=== PATIENT | female | born 1950 | race African-American/Black ===

== ENCOUNTER → 2017-10-25 | Outpatient (CLI) | payer BC ==
[2017-10-26 00:02] LABS: CLARITY URINE CLEAR (CLEAR); COLOR URINE DARK YELLOW (YELLOW); KETONES URINE TRACE (NEGATIVE); LEUKOCYTE ESTERASE URINE 3+ (NEGATIVE); NITRITE URINE NEGATIVE (NEGATIVE); OCCULT BLOOD URINE NEGATIVE (NEGATIVE); PROTEIN URINE NEGATIVE (NEGATIVE); SPECIFIC GRAVITY URINE 1.024 (1.005-1.030)
[2017-10-26 00:04] LABS: BASOPHILS % 0.8 % (0.0-2.0); EOSINOPHILS % 2.1 % (0.0-5.0); HEMATOCRIT. 40.4 % (36.0-48.0); HEMOGLOBIN. 13.3 g/dL (12.0-16.0); MEAN CORPUSCULAR HEMOGLOBIN 31.7 pg (28.0-32.0); MEAN CORPUSCULAR VOLUME 96.6 fL (81.0-99.0); MEAN PLATELET VOLUME 9.7 fl (7.4-10.4); MONOCYTES % 9.3 % (2.0-8.0); NEUTROPHILS % 56.8 % (40.0-76.0); PLATELET 220 x1000/uL (130-400); RED BLOOD CELL COUNT 4.18 mill/uL (4.2-5.4); RED CELL DISTRIBUTION WIDTH 15.2 % (11.6-14.6)
[2017-10-26 00:06] LABS: CHLORIDE 112 mEq/L (98-107)
[2017-10-26 00:28] LABS: PROTHROMBIN TIME 10.6 sec (9.4-11.6)
== END | disposition home or self-care (01) ==
LOC: LAB 18:42
DX: I10 Essential (primary) hypertension (principal); G47.26 Circadian rhythm sleep disorder, shift work type; D50.8 Other iron deficiency anemias; R79.89 Other specified abnormal findings of blood chemistry; Z79.01 Long term (current) use of anticoagulants
CPT/HCPCS: 36415; 80048; 81003; 85025; 85610; 87086; 87536

== ENCOUNTER → 2017-11-30 | Outpatient (CLI) | payer BC | END | disposition home or self-care (01) | LOC: RAD 18:18 | DX: Z01.818 Encounter for other preprocedural examination (principal); M13.862 Other specified arthritis, left knee; M25.862 Other specified joint disorders, left knee | CPT/HCPCS: 71045; 73562 ==

== ENCOUNTER → 2017-12-07 | Outpatient (CLI) | payer BC ==
[~2017-12-07] MED LIST: AMLO10TA80 PO; DOCU-138 PO; FERR324T4 PO; GING550C5 PO; HYDR-4009 PO; TURM538C PO
[2017-12-08 05:32] LABS: BASOPHILS % 1.1 % (0.0-2.0); EOSINOPHILS % 2.9 % (0.0-5.0); HEMATOCRIT. 39.6 % (36.0-48.0); LYMPHOCYTES % 28.9 % (20.0-50.0); MEAN CORPUSCULAR HEMOGLOBIN 31.6 pg (28.0-32.0); MEAN CORPUSCULAR VOLUME 96.5 fL (81.0-99.0); MEAN PLATELET VOLUME 9.6 fl (7.4-10.4); MONOCYTES % 11.8 % (2.0-8.0); NEUTROPHILS % 55.3 % (40.0-76.0); PLATELET 226 x1000/uL (130-400)
[2017-12-08 05:40] LABS: CHLORIDE 111 mEq/L (98-107)
[2017-12-08 05:53] LABS: CLARITY URINE CLEAR (CLEAR); COLOR URINE YELLOW (YELLOW); KETONES URINE NEGATIVE (NEGATIVE); LEUKOCYTE ESTERASE URINE NEGATIVE (NEGATIVE); NITRITE URINE NEGATIVE (NEGATIVE); OCCULT BLOOD URINE NEGATIVE (NEGATIVE); PH URINE 6.5 (4.5-8.0); PROTEIN URINE NEGATIVE (NEGATIVE); SPECIFIC GRAVITY URINE 1.026 (1.005-1.030); UROBILINOGEN URINE 0.2 E.U./dL (0.2-1.0)
[2017-12-08 05:59] LABS: PROTHROMBIN TIME 10.3 sec (9.4-11.6)
== END | disposition home or self-care (01) ==
LOC: LAB 18:35
DX: I10 Essential (primary) hypertension (principal); R06.02 Shortness of breath
CPT/HCPCS: 36415; 80048; 81003; 85025; 85610

== ENCOUNTER → 2017-12-19 | Outpatient (CLI) | payer BC | END | disposition home or self-care (01) | LOC: RAD 07:31 | PROVIDERS: ATTEND Internal Medicine Clinical Cardiac Electrophysiology | DX: I10 Essential (primary) hypertension (principal); R06.02 Shortness of breath; R07.89 Other chest pain | CPT/HCPCS: 78451; A9500; C1893 ==

== ENCOUNTER 2018-01-23 08:37 | Inpatient (IN) | payer BC, MEDICARE ==
[~2018-01-23] VITALS: Ht 170.2 cm; Wt 102.1 kg
[2018-01-23] MEDS ORDERED: LACTATED RINGERS 1,000 ML IV SCH (10:30)
[2018-01-23] MEDS ORDERED: LIDOCAINE HCL/PF 1% 10 MG/ML 5ML VIAL ONE (10:51)
[2018-01-23 10:52] LABS: HEMATOCRIT. 40.9 % (36.0-48.0); HEMOGLOBIN. 13.5 g/dL (12.0-16.0); LYMPHOCYTES % 20.6 % (20.0-50.0); MEAN CORPUSCULAR HEMOGLOBIN 31.6 pg (28.0-32.0); MEAN CORPUSCULAR VOLUME 95.5 fL (81.0-99.0); MEAN PLATELET VOLUME 9.7 fl (7.4-10.4); MONOCYTES % 10.6 % (2.0-8.0); NEUTROPHILS % 64.8 % (40.0-76.0); PLATELET 190 x1000/uL (130-400); RED BLOOD CELL COUNT 4.28 mill/uL (4.2-5.4)
[2018-01-23 10:54] LABS: CLARITY URINE CLEAR (CLEAR); COLOR URINE YELLOW (YELLOW); KETONES URINE TRACE (NEGATIVE); LEUKOCYTE ESTERASE URINE NEGATIVE (NEGATIVE); NITRITE URINE NEGATIVE (NEGATIVE); OCCULT BLOOD URINE NEGATIVE (NEGATIVE); PH URINE 6.5 (4.5-8.0); PROTEIN URINE NEGATIVE (NEGATIVE); SPECIFIC GRAVITY URINE 1.018 (1.005-1.030); UROBILINOGEN URINE 0.2 E.U./dL (0.2-1.0)
[2018-01-23 11:00] LABS: CHLORIDE 110 mEq/L (98-107)
[2018-01-23 11:01] LABS: PROTHROMBIN TIME 10.1 sec (9.4-11.6)
[2018-01-23] MEDS ORDERED: HYDR-4009 PO (11:56)
[2018-01-23] MEDS ORDERED: GING550C5 PO (11:56)
[2018-01-23] MEDS ORDERED: FERR324T4 PO (11:56)
[2018-01-23] MEDS ORDERED: AMLO10TA80 PO (11:56)
[2018-01-23] MEDS ORDERED: TURM538C PO (11:56)
[2018-01-23] MEDS ORDERED: METHYLENE BLUE 50 MG/10 ML AMP IV ONE (12:43)
[2018-01-23] MEDS ORDERED: EPINEPHRINE 1:1000 1 MG/ML AMP ONE (12:44)
[2018-01-23] MEDS ORDERED: BUPIVACAINE HCL/EPINEPHRINE/PF 0.5%/0.0005 10ML ONE (12:44)
[2018-01-23] MEDS ORDERED: NORMAL SALINE 0.9% 10 ML SYR ONE (12:44)
[2018-01-23] MEDS ORDERED: BACITRACIN 50,000 UNITS/VIAL ONE (12:44)
[2018-01-23] MEDS ORDERED: GENTAMICIN SULF 40MG/ML 2ML VIAL ONE (12:44)
[2018-01-23] MEDS ORDERED: TRANEXAMIC ACID 1,000 MG in SODIUM CHLORIDE 0.9% 100 ML IV NR (13:00)
[2018-01-23] MEDS ORDERED: MIDAZOLAM HCL 2 MG/2 ML VIAL ONE (13:24)
[2018-01-23] MEDS ORDERED: BUPIVACAINE HCL 0.5% (5MG/ML) 50ML ONE (13:25)
[2018-01-23] MEDS ORDERED: FENTANYL CITRATE/PF 50MCG/ML 2ML VIAL ONE ×2 (13:25→16:22)
[2018-01-23] MEDS ORDERED: PROPOFOL 200MG/20ML VIAL IV ONE (13:25)
[2018-01-23] MEDS ORDERED: SUCCINYLCHOLINE CHLORIDE 200MG/10ML VIAL IV ONE (13:28)
[2018-01-23] MEDS ORDERED: BUPIVACAINE HCL/EPINEPHRINE 0.5%/0.0005 30ML ONE (13:32)
[2018-01-23] MEDS ORDERED: MORPHINE SULFATE/PF 1MG/ML 10ML AMP ONE (13:48)
[2018-01-23] MEDS ORDERED: PHENYLEPHRINE HCL 10 MG/ML 1ML (IV VIAL) IV ONE (13:54)
[2018-01-23] MEDS ORDERED: ROCURONIUM BROMIDE 10MG/ML VIAL 5ML IV ONE (14:07)
[2018-01-23] MEDS ORDERED: FENTANYL CITRATE/PF 50MCG/ML 5ML VIAL ONE (14:08)
[2018-01-23] MEDS ORDERED: CEFAZOLIN SODIUM 1000MG/VIAL ONE (14:19)
[2018-01-23] MEDS ORDERED: DEXAMETHASONE 4MG/ML 1ML VIAL ONE (15:29)
[2018-01-23] MEDS ORDERED: NEOSTIGMINE METHYLSULFATE 1MG/ML 10 ML VIAL ONE (16:42)
[2018-01-23] MEDS ORDERED: GLYCOPYRROLATE 0.2 MG/ML 2ML VIAL ONE (16:42)
[2018-01-23] MEDS ORDERED: ONDANSETRON HCL 4MG/2ML VIAL ONE (16:43)
[2018-01-23] MEDS ORDERED: KETOROLAC 30MG/ML VIAL ONE (16:47)
[2018-01-23] MEDS ORDERED: HYDROMORPHONE HCL/PF 2MG/ML CPJ IV PRN (17:15)
[2018-01-23] MEDS ORDERED: MEPERIDINE HCL/PF 25MG/ML CPJ IV PRN (17:15)
[2018-01-23] MEDS ORDERED: ONDANSETRON HCL 4MG/2ML VIAL IV PRN ×2 (17:15→17:45)
[2018-01-23] MEDS ORDERED: ACETAMINOPHEN 325MG TABLET PO PRN (17:45)
[2018-01-23] MEDS ORDERED: HYDROMORPHONE PCA 10MG/50ML IV PRN (18:00)
[2018-01-23] MEDS ORDERED: NALOXONE INJ IV PRN (18:00)
[2018-01-23] MEDS ORDERED: DIPHENHYDRAMINE INJ IV PRN (18:00)
[2018-01-23] MEDS ORDERED: ONDANSETRON INJ IV PRN (18:00)
[2018-01-23 20:00] VITALS: BP 143/57
[2018-01-23] MEDS ORDERED: ZOLPIDEM TARTRATE 5MG TABLET PO PRN (21:00)
[2018-01-23 21:08] VITALS: BP 143/57
[2018-01-23] MEDS: HYDROCODONE/ACETAMINOPHEN 10/325MG TABLET PO PRN (23:22)
[2018-01-23] MEDS: CEFAZOLIN 2,000 MG in DEXT 5% WATER 100 ML IV SCH (23:22)
[2018-01-24] VITALS: BP 150/78
[2018-01-24 04:00] VITALS: BP 104/66
[2018-01-24] MEDS: CEFAZOLIN 2,000 MG in DEXT 5% WATER 100 ML IV SCH (05:26)
[2018-01-24 08:00] VITALS: BP 149/80
[2018-01-24] MEDS: ENOXAPARIN 30MG/0.3ML SYR SUBCUT SCH ×2 (08:35→21:09)
[2018-01-24] MEDS: DOCUSATE SODIUM 100MG CAPSULE PO SCH ×2 (08:37→17:43)
[2018-01-24] MEDS: FERROUS SULFATE 325MG TABLET PO SCH ×3 (08:37→17:43)
[2018-01-24] MEDS: HYDROCODONE/ACETAMINOPHEN 10/325MG TABLET PO PRN ×4 (08:38→21:28)
[2018-01-24] MEDS: AMLODIPINE 10MG TABLET PO SCH (09:16)
[2018-01-24 11:13] LABS: BASOPHILS % 0.2 % (0.0-2.0); EOSINOPHILS % 0.3 % (0.0-5.0); HEMATOCRIT. 31.4 % (36.0-48.0); HEMOGLOBIN. 10.4 g/dL (12.0-16.0); LYMPHOCYTES % 12.1 % (20.0-50.0); MEAN CORPUSCULAR VOLUME 96.6 fL (81.0-99.0); MEAN PLATELET VOLUME 10.4 fl (7.4-10.4); MONOCYTES % 11.2 % (2.0-8.0); NEUTROPHILS % 76.2 % (40.0-76.0); PLATELET 140 x1000/uL (130-400); RED BLOOD CELL COUNT 3.25 mill/uL (4.2-5.4); RED CELL DISTRIBUTION WIDTH 15.4 % (11.6-14.6)
[2018-01-24 11:24] LABS: CHLORIDE 108 mEq/L (98-107)
[2018-01-24 12:00] VITALS: BP 112/64
[2018-01-24 16:00] VITALS: BP 133/59
[2018-01-24 20:00] VITALS: BP 135/58
[2018-01-24] MEDS ORDERED: FAMOTIDINE 20MG TABLET PO SCH (21:00)
[2018-01-25] VITALS (8 sets, daily range): BP systolic 105–138; BP diastolic 64–77
[2018-01-25] MEDS: HYDROCODONE/ACETAMINOPHEN 10/325MG TABLET PO PRN ×6 (02:05→21:38)
[2018-01-25] MEDS: FERROUS SULFATE 325MG TABLET PO SCH ×4 (07:50→17:49)
[2018-01-25] MEDS: ENOXAPARIN 30MG/0.3ML SYR SUBCUT SCH (08:38)
[2018-01-25] MEDS: DOCUSATE SODIUM 100MG CAPSULE PO SCH ×2 (08:38→17:49)
[2018-01-25] MEDS: MAGNESIUM HYDROXIDE 400MG/5ML 30ML UDC PO PRN ×2 (08:38→12:55)
[2018-01-25] MEDS: AMLODIPINE 10MG TABLET PO SCH (08:39)
[2018-01-25] MEDS ORDERED: DOCU-138 PO ×2 (20:55→20:56)
== END 2018-01-25 22:05 | disposition home health service (06) | DRG 470 ==
LOC: ORIP 08:37 → 6EST 19:28
PROVIDERS: ADMIT Orthopaedic Surgery; ATTEND Orthopaedic Surgery
PROC: 0SRD0J9 Replacement of Left Knee Joint with Synthetic Substitute, Cemented, Open Approach (ICD-10-PCS; principal; 2018-01-23 14:00)
DX: M17.12 Unilateral primary osteoarthritis, left knee (principal); I10 Essential (primary) hypertension; E66.9 Obesity, unspecified; D64.9 Anemia, unspecified; M10.9 Gout, unspecified; G89.29 Other chronic pain; Z96.651 Presence of right artificial knee joint; M24.562 Contracture, left knee; M65.9 Synovitis and tenosynovitis, unspecified; W27.0XXA Contact with workbench tool, initial encounter; Z87.891 Personal history of nicotine dependence; Z98.84 Bariatric surgery status; Z68.35 Body mass index [BMI] 35.0-35.9, adult
CPT/HCPCS: 36415; 73560; 80048; 81003; 85025; 85610; 85730; 86850; 86900; 88305; 88309; 88311; 93005; 97110; 97116; 97162; 97166; 97530; A4216; C1713; C1776; J0171; J0330; J0690; J1100; J1170; J1200; J1580; J1650; J1885; J2175; J2250; J2274; J2370; J2405; J2704; J2710; J3010; J3490; J7030; J7050; J7060; J7120; L1830; Q9968

== ENCOUNTER 2018-09-07 06:01 | Emergency (ER) | payer BC, MEDICARE ==
[~2018-09-07] VITALS: Ht 167.6 cm; Wt 96.0 kg
[~2018-09-07 06:01] MED LIST changes: -GING550C5 PO; -TURM538C PO
[2018-09-07 06:43] VITALS: BP 158/103
[2018-09-07] MEDS ORDERED: PREDNISONE 20MG TABLET PO ONE (07:00)
== END 2018-09-07 07:10 | disposition home or self-care (01) ==
LOC: ER 06:01
DX: T78.49XA Other allergy, initial encounter (principal); D64.9 Anemia, unspecified; I10 Essential (primary) hypertension; X58.XXXA Exposure to other specified factors, initial encounter; Z96.659 Presence of unspecified artificial knee joint; Z98.84 Bariatric surgery status; Z98.890 Other specified postprocedural states; Z79.899 Other long term (current) drug therapy; Z91.013 Allergy to seafood
CPT/HCPCS: 99283; J7512

== ENCOUNTER → 2019-09-27 | Outpatient (CLI) | payer BC ==
[2019-09-27 09:52] LABS: BASOPHILS % 0.8 % (0.0-2.0); EOSINOPHILS % 2.6 % (0.0-5.0); HEMATOCRIT. 42.7 % (36.0-48.0); HEMOGLOBIN. 14.5 g/dL (12.0-16.0); LYMPHOCYTES % 20.1 % (20.0-50.0); MEAN CORPUSCULAR HEMOGLOBIN 33.3 pg (28.0-32.0); MEAN PLATELET VOLUME 10.3 fl (7.4-10.4); MONOCYTES % 11.5 % (2.0-8.0); PLATELET 137 x1000/uL (130-400); RED BLOOD CELL COUNT 4.35 mill/uL (4.2-5.4); RED CELL DISTRIBUTION WIDTH 15.2 % (11.6-14.6)
[2019-09-27 10:33] LABS: CORTISOL 13.6 ucg/dL
[2019-09-28 09:08] LABS: CA 27.29 16.7 U/mL (0.0-38.6); CANCER ANTIGEN 125 11.2 U/mL (0.0-38.1)
== END | disposition home or self-care (01) ==
LOC: LAB 08:50
DX: N28.1 Cyst of kidney, acquired (principal)
CPT/HCPCS: 36415; 80061; 82024; 82088; 82378; 82533; 82626; 82728; 83036; 83540; 83550; 85025; 86300; 86301; 86304

== ENCOUNTER 2020-12-17 01:34 | Emergency (ER) | payer BC ==
[~2020-12-17] VITALS: Ht 170.2 cm; Wt 100.0 kg
[2020-12-17] MEDS ORDERED: ASPIRIN 81MG TABLET PO ONE (02:30)
[2020-12-17] MEDS ORDERED: LABETALOL 5MG/ML SYR 20 MG/4 ML SYRINGE IV ONE (02:30)
[2020-12-17 02:53] LABS: BASOPHILS % 0.9 % (0.0-2.0); EOSINOPHILS % 2.3 % (0.0-5.0); HEMATOCRIT. 45.2 % (36.0-48.0); HEMOGLOBIN. 15.1 g/dL (12.0-16.0); LYMPHOCYTES % 25.7 % (20.0-50.0); MEAN CORPUSCULAR HEMOGLOBIN 32.7 pg (28.0-32.0); MEAN CORPUSCULAR VOLUME 97.8 fL (81.0-99.0); MEAN PLATELET VOLUME 10.3 fl (7.4-10.4); MONOCYTES % 11.5 % (2.0-8.0); NEUTROPHILS % 59.6 % (40.0-76.0); PLATELET 165 x1000/uL (130-400); RED BLOOD CELL COUNT 4.62 mill/uL (4.2-5.4); RED CELL DISTRIBUTION WIDTH 15.1 % (11.6-14.6)
[2020-12-17 02:57] LABS: CHLORIDE 109 mEq/L (98-107)
[2020-12-17] MEDS ORDERED: AMLO10TA80 MT (05:03)
[2020-12-17 05:48] VITALS: BP 174/98
== END 2020-12-17 05:49 | disposition home or self-care (01) ==
LOC: ER 01:34
DX: I10 Essential (primary) hypertension (principal); R42 Dizziness and giddiness; Z98.84 Bariatric surgery status; Z96.659 Presence of unspecified artificial knee joint; Z91.09 Other allergy status, other than to drugs and biological substances
CPT/HCPCS: 36415; 70450; 71045; 80053; 83880; 84484; 85025; 93005; 96374; 99285; J3490; Z7610

== ENCOUNTER → 2022-02-10 | Outpatient (CLI) | payer BC, MEDICARE ==
[~2022-02-10] MED LIST changes: +AMLO10TA80 MT
== END | disposition home or self-care (01) ==
LOC: US 08:23
DX: S09.90XA Unspecified injury of head, initial encounter (principal); G31.9 Degenerative disease of nervous system, unspecified; I67.82 Cerebral ischemia; R90.82 White matter disease, unspecified; N20.0 Calculus of kidney; R10.9 Unspecified abdominal pain; X58.XXXA Exposure to other specified factors, initial encounter; Y93.89 Activity, other specified; Y92.89 Other specified places as the place of occurrence of the external cause; Y99.8 Other external cause status
CPT/HCPCS: 76770

== ENCOUNTER → 2022-03-10 | Outpatient (CLI) | payer BC, MEDICARE ==
[2022-03-10 11:41] LABS: CHLORIDE 108 mEq/L (98-107)
[2022-03-10 11:59] LABS: HDL CHOLESTEROL 82 mg/dL (40-59); LDL CHOLESTEROL 96 mg/dL (5-100); T4 FREE 0.83 ng/dL (0.76-1.46); TOTAL IRON BINDING CAPACITY 359 ug/dL (250-450)
[2022-03-11 13:06] LABS: ANTI-DNA DOUBLE STRANDED QUANT < 1 IU/mL (0-9); ANTI-NUCLEAR ANTIBODIES DIRECT Negative (Negative); ANTI-SCLERODERMA-70 AB <0.2 AI (0.0-0.9); RNP ANTIBODY 0.2 AI (0.0-0.9); SJOGRENS ANTI SS-A < 0.2 AI (0.0-0.9); SJOGRENS ANTI SS-B < 0.2 AI (0.0-0.9)
== END | disposition home or self-care (01) ==
LOC: LAB 10:42
DX: S09.90XA Unspecified injury of head, initial encounter (principal); G31.01 Pick's disease; R10.9 Unspecified abdominal pain; R54 Age-related physical debility; Z72.3 Lack of physical exercise; X58.XXXA Exposure to other specified factors, initial encounter; Y93.89 Activity, other specified; Y92.89 Other specified places as the place of occurrence of the external cause; Y99.8 Other external cause status
CPT/HCPCS: 36415; 80053; 80061; 83540; 83550; 84439; 84443; 84481; 85379; 86038; 86225; 86235; 86430

== ENCOUNTER → 2022-07-27 | Outpatient (CLI) | payer BC, MEDICARE | END | disposition home or self-care (01) | LOC: EDSTATUS 09:44 → CARD 09:45 | PROVIDERS: ATTEND Psychiatry & Neurology Neurology | DX: R26.89 Other abnormalities of gait and mobility (principal); R29.6 Repeated falls ==

== ENCOUNTER → 2022-09-26 | Outpatient (CLI) | payer BC, MEDICARE ==
[2022-09-26 12:04] LABS: PARTIAL THROMBOPLASTIN TIME 27.1 sec (23.4-31.0); PROTHROMBIN TIME 10.9 sec (9.6-11.0)
[2022-09-26 12:06] LABS: BASOPHILS % 0.7 % (0.0-2.0); EOSINOPHILS % 3.1 % (0.0-5.0); HEMATOCRIT. 43.6 % (36.0-48.0); HEMOGLOBIN. 14.4 g/dL (12.0-16.0); LYMPHOCYTES % 32.7 % (20.0-50.0); MEAN CORPUSCULAR HEMOGLOBIN 31.5 pg (28.0-32.0); MEAN CORPUSCULAR VOLUME 95.7 fL (81.0-99.0); MONOCYTES % 10.5 % (2.0-8.0); PLATELET 186 x1000/uL (130-400); RED BLOOD CELL COUNT 4.56 mill/uL (4.2-5.4); RED CELL DISTRIBUTION WIDTH 16.5 % (11.6-14.6)
== END | disposition home or self-care (01) ==
LOC: LAB 11:16
DX: Z01.818 Encounter for other preprocedural examination (principal); H53.2 Diplopia; H49.882 Other paralytic strabismus, left eye
CPT/HCPCS: 36415; 71046; 80048; 85025; 93005

== ENCOUNTER → 2023-03-14 | Day surgery (SDC) | payer BC ==
[~2023-03-14] VITALS: Ht 170.2 cm; Wt 88.5 kg
[~2023-03-14] MED LIST changes: +ACETAMINOPHEN 325MG TABLET PO PRN; +CEFAZOLIN SODIUM 1000MG/VIAL ONE; +CHLO25TA2 PO; +DEXAMETHASONE 4MG/ML 1ML VIAL ONE; +FENTANYL CITRATE/PF 50MCG/ML 2ML VIAL ONE; +FOLI-43 PO; +GLYCOPYRROLATE 0.2 MG/ML 2ML VIAL ONE; +LACTATED RINGERS 1,000 ML IV SCH; +MECL-264 PO; +ONDANSETRON HCL 4MG/2ML INJ ONE; +POTA-202 PO; +PROPOFOL 200MG/20ML VIAL IV ONE; +UBID100C12 PO
[2023-03-14 08:44] LABS: POTASSIUM 3.7 mEq/L (3.5-5.1)
[2023-03-14 14:37] VITALS: TEMP 97.8
== END | disposition home or self-care (01) ==
LOC: OR 08:07
PROVIDERS: ATTEND Ophthalmology
DX: H50.112 Monocular exotropia, left eye (principal); I10 Essential (primary) hypertension; D64.9 Anemia, unspecified; Z79.899 Other long term (current) drug therapy; Z98.890 Other specified postprocedural states
CPT/HCPCS: 67312; 84132; 36415; J3010; J0690; J1100; J3490; J2405; J2704

== ENCOUNTER 2024-06-02 07:50 | Emergency (ER) | payer BC ==
[~2024-06-02] VITALS: Ht 167.6 cm; Wt 90.2 kg
[~2024-06-02 07:50] MED LIST changes: -ACETAMINOPHEN 325MG TABLET PO PRN; -CEFAZOLIN SODIUM 1000MG/VIAL ONE; -DEXAMETHASONE 4MG/ML 1ML VIAL ONE; -DOCU-138 PO; -FENTANYL CITRATE/PF 50MCG/ML 2ML VIAL ONE; -FERR324T4 PO; -GLYCOPYRROLATE 0.2 MG/ML 2ML VIAL ONE; -HYDR-4009 PO; -LACTATED RINGERS 1,000 ML IV SCH; -ONDANSETRON HCL 4MG/2ML INJ ONE; -PROPOFOL 200MG/20ML VIAL IV ONE
[2024-06-02 08:13] VITALS: O2SAT 100
[2024-06-02] MEDS ORDERED: TRAM-534 MT (10:55)
[2024-06-02 11:10] VITALS: BP 130/84; PULSE 97; RESP 18; TEMP 36.72516; O2SAT 100
== END 2024-06-02 11:24 | disposition home or self-care (01) ==
LOC: ER 08:27
DX: S70.01XA Contusion of right hip, initial encounter (principal); I10 Essential (primary) hypertension; Z96.659 Presence of unspecified artificial knee joint; Z79.899 Other long term (current) drug therapy; W18.2XXA Fall in (into) shower or empty bathtub, initial encounter; Y93.E1 Activity, personal bathing and showering; Y92.89 Other specified places as the place of occurrence of the external cause; Y99.8 Other external cause status
CPT/HCPCS: 73502; 99283